=== PATIENT | male | born 1975 | race Caucasian/White ===

== ENCOUNTER 2019-11-29 19:23 | Emergency (ER) | payer OTHER ==
[~2019-11-29] VITALS: Ht 175.3 cm; Wt 108.9 kg
[2019-11-29] MEDS ORDERED: SYNTHROID50 MCG PO (19:41)
[2019-11-29] MEDS ORDERED: CITALOPRAM HBR20 MG PO (19:42)
[2019-11-29] MEDS ORDERED: NORCO 5-325 TA1 EACH PO (22:55)
== END 2019-11-29 23:48 | disposition home or self-care (01) ==
LOC: ED 19:23
DX: T22.211A Burn of second degree of right forearm, initial encounter (principal); T23.201A Burn of second degree of right hand, unspecified site, initial encounter; T31.0 Burns involving less than 10% of body surface; F41.9 Anxiety disorder, unspecified; E03.9 Hypothyroidism, unspecified; Z79.899 Other long term (current) drug therapy; X58.XXXA Exposure to other specified factors, initial encounter
CPT/HCPCS: 16020; 90471; 90715; 99283-25; J1170